=== PATIENT | male | born 1965 | race Hispanic/Latino ===

== ENCOUNTER → 2024-10-20 | Outpatient (CLI) | payer OTHER ==
--- NOTE | 2024-10-20 10:36 | HMCIMG ---
Exam Type: ABD 1VW Clinical Information: CALCULUS OF KIDNEY Comparison: None Findings: Abdomen demonstrates no evidence of pathologic calcification or soft tissue mass. Left renal calculus seen measuring 20 mm. The intestinal gas pattern is within normal limits without evidence of dilatation to suggest obstruction or adynamic ileus. The bony structures are unremarkable. IMPRESSION: Left nephrolithiasis.
== END | disposition home or self-care (01) ==
LOC: RAH 09:36
PROVIDERS: ATTEND Urology
DX: N20.0 Calculus of kidney (principal)
CPT/HCPCS: 74018